=== PATIENT | male | born 1985 | race Caucasian/White ===

== ENCOUNTER → 2022-09-18 08:20 | Outpatient (CLI) | payer OTHER, SELFPAY ==
--- NOTE | 2022-09-18 | DI.ECHO.S_ITS ---
[facility] +---------+ : : [address] : [address] [address] : : : : [id number] : : : : Phone: [phone] +---------+ Echocardiogram Report + + :Name: MILAN MORALES Study Date: 09/18/2022 Height: 69 in : :[facility] ReadingLocation: Weight: 265 lb : : Gender: Male BSA: 2.3 m2 : :: 1985 Age: 36 yrs BP: 164/99 mmHg: :Reason For Study: Congestive Heart Failure : :Ordering Physician: : :TALYA ZAMORANO Performed By: Elizabeth Burt : :Referring: TALYA ZAMORANO : + + Interpretation Summary The left ventricle is normal in size. The ejection fraction is estimated to be 40-45%. There is mild global hypokinesis of the left ventricle. Diastolic parameters suggest probable normal left ventricular diastolic function and normal filling pressures. The right ventricle is mildly dilated. The right ventricular systolic function is normal. Pulmonary artery pressures cannot be estimated because of the lack of a measurable TR jet velocity. The left atrial size is normal. The right atrium is normal in size. There is no significant valvular heart disease. The aortic root is normal size. Procedure: A two-dimensional transthoracic echocardiogram with color flow and Doppler was performed. The patient was in sinus rhythm with heart rates between 75-90 bpm during the exam. Left Ventricle: The left ventricle is normal in size. There is mild concentric left ventricular hypertrophy. Left ventricular systolic function is mildly reduced. The ejection fraction is estimated to be 40-45%. There is mild global hypokinesis of the left ventricle. Diastolic parameters suggest probable normal left ventricular diastolic function and normal filling pressures. Right Ventricle: The right ventricle is mildly dilated. The right ventricular systolic function is normal. Atria: The left atrial size is normal. The right atrium is normal in size. There is no Doppler evidence for an interatrial shunt. Mitral Valve: The mitral valve is normal in structure and function. There is trace mitral regurgitation. Aortic Valve: The aortic valve is normal in structure and function. There is no aortic regurgitation. Tricuspid Valve: The tricuspid valve is normal in structure and function. There is a trace or physiologic amount of tricuspid regurgitation. Pulmonary artery pressures cannot be estimated because of the lack of a measurable TR jet velocity. Pulmonic Valve: The pulmonic valve leaflets are thin and pliable; valve motion is normal. There is a trace or physiologic amount of pulmonic regurgitation. There is no significant valvular heart disease. Great Vessels: The aortic root is normal size. The dimensions of the ascending aorta are normal. The IVC is of normal diameter and collapses greater than 50% with a sniff. This suggests a low right atrial pressure of 3 mm Hg. Pericardium/ Pleura There is no pericardial effusion. There is no pleural effusion. MMode/2D Measurements & Calculations LVIDd: 4.9 cm LVOT diam: 2.6 cm LVIDs: 3.8 cm Ao root diam: 3.2 cm FS: 22.4 % asc Aorta Diam: 3.4 cm EPSS: 0.50 cm IVSd: 1.2 cm LVPWd: 1.3 cm LV ramey. diameter/BSA (cm/m^2): 2.1 LV sys. diameter/BSA (cm/m^2): 1.6 LA A2 area: 17.4 cm2 RA long axis: 4.9 cm LA A4 area: 18.3 cm2 RA area: 18.5 cm2 LA length (vol): 4.7 cm RA vol: 58.9 ml LA vol: 57.1 ml RA : 25.3 ml/m2 LA vol index: 24.5 ml/m2 LVLs ap4: 6.4 cm LVLd ap2: 7.3 cm LVLs ap2: 6.0 cm TAPSE_phl: 2.1 cm Doppler Measurements & Calculations Ao V2 max: 136.0 cm/sec LVOT Max Dagoberto: 89.4 cm/sec Ao V2 mean: 100.0 cm/sec LV V1 max P.2 mmHg Ao max P.0 mmHg LV V1 VTI: 19.4 cm Ao mean P.0 mmHg JOSSUE(I,D): 3.7 cm2 Ao V2 VTI: 27.6 cm JOSSUE(V,D): 3.5 cm2 sev ratio: 0.70 JOSSUE indexed to BSA (cm^2/m^2): 1.6 MV E max dagoberto: 67.5 cm/sec TR max dagoberto: 269.0 cm/sec MV A max dagoberto: 60.2 cm/sec PA V2 max: 108.0 cm/sec MV E/A: 1.1 PA V2 mean: 75.0 cm/sec Med Peak E' Dagoberto: 4.7 cm/sec PA mean P.0 mmHg E/E' med: 14.2 Lat Peak E' Dagoberto: 11.7 cm/sec E/E' lat: 5.8 E/e' average: 10.0 MV dec time: 0.21 sec MVA(VTI): 4.6 cm2 MV V2 mean: 44.9 cm/sec SV(LVOT): 103.0 ml MV mean P.0 mmHg MV V2 VTI: 22.2 cm AV VR_phl: 0.66 JOSSUE(VTI)/BSA_phl: 1.6 Reading Physician:12:[id number] PM
== END ==
PROVIDERS: Referring Provider Chiropractor; Visit Provider Chiropractor
DX: I50.9 Heart failure, unspecified (principal)
CPT/HCPCS: 93306